=== PATIENT | male | born 1955 | race Caucasian/White ===

== ENCOUNTER 2016-10-14 12:04 | Emergency (ER) | payer BC ==
[~2016-10-14 12:04] MED LIST: AUGMENTIN 875-1 EACH PO; BACTRIM DS TAB1 EACH PO; BAYER CHEWABLE81 MG PO; CHILDRENS CHEWA81 MG PO; GLUCOPHAGE500 MG PO; GLUCOVANCE 5-51 EACH PO; LEVAQUIN500 MG PO; NIACIN500 M1 PO; NOVOLOG FL100 UNIT/1 SQ; NOVOLOG100 UNIT/2 SQ; OMEPRAZOLE40 MG PO; PLAVIX75 MG PO; PRAVACHOL20 MG PO; PRAVASTATIN SOD10 MG PO; PRILOSEC20 MG PO; ZESTRIL10 MG PO; ZESTRIL5 MG PO; ZOLOFT100 MG PO
[2016-10-14 12:40] LABS: BASO % 0.2 % (0.2-1.2); EOS % 0.2 % (0.8-7.0); GRAN # 10.9 10_X3_uL (1.8-5.4); GRAN % 86.4 % (34.0-67.9); HEMATOCRIT 37.4 % (40-51); LYMPH # 0.9 10_X3_uL (1.3-3.6); LYMPH % 6.8 % (21.8-53.1); MEAN CORPUSCULAR HEMOGLOBIN 30.2 pg (27.0-33.0); MEAN CORPUSCULAR HGB CONC 34.8 g/dL (32.0-36.0); MEAN CORPUSCULAR VOLUME 86.8 fL (79-92); MEAN PLATELET VOLUME 9.7 fl (7.5-11.5); MONO # 0.8 10_X3_uL (0.3-0.8); MONO % 6.4 % (5.3-12.2); PLATELET COUNT 195 x10_3/uL (163-337); RED BLOOD COUNT 4.31 x10_6/uL (4.6-6.1); RED CELL DISTRIBUTION WIDTH 14.8 % (11.6-14.4); WHITE BLOOD COUNT 12.6 x10_3/uL (4.2-9.1)
[2016-10-14 12:54] LABS: ALBUMIN 3.8 gm/dL (3.4-5.0); ALKALINE PHOSPHATASE 77 U/L (50-136); ALT/SGPT 10 U/L (7.53-40.17); AST/SGOT 16 U/L (6.66-35.34); BLOOD UREA NITROGEN 12 mg/dL (7-18); CARBON DIOXIDE 24 mmol/L (21-32); CREATININE 0.7 mg/dL (0.6-1.3); GLUCOSE,RANDOM 240 mg/dL (70-99); SODIUM 137 mmol/L (136-145); TOTAL PROTEIN 6.9 gm/dL (6.4-8.2)
== END 2016-10-14 15:14 | disposition home or self-care (01) ==
LOC: ER 12:04
PROVIDERS: Emergency Medicine
DX: J06.9 Acute upper respiratory infection, unspecified (principal); R53.1 Weakness; E86.0 Dehydration; R52 Pain, unspecified; E11.622 Type 2 diabetes mellitus with other skin ulcer; Z82.49 Family history of ischemic heart disease and other diseases of the circulatory system; Z98.84 Bariatric surgery status; Z98.890 Other specified postprocedural states; Z79.899 Other long term (current) drug therapy; Z79.84 Long term (current) use of oral hypoglycemic drugs
CPT/HCPCS: 36415; 80053; 83605; 85025; 87400; 96360; 99070; 99283-25